=== PATIENT | male | born 1970 | race Caucasian/White ===

== ENCOUNTER 2017-09-13 07:24 | Emergency (ER) | payer MEDICAID ==
[~2017-09-13] VITALS: Ht 177.8 cm; Wt 85.0 kg
[~2017-09-13 07:24] MED LIST: BIOTCAP PO; CYAN1TAB24 PO; HUMIKIT2 SQ; MELO7.5T27 PO; NIAC500T5 PO
[2017-09-13 07:27] VITALS: BP 135/82; PULSE 87; RESP 18; TEMP 97.6; O2SAT 99
[2017-09-13] MEDS ORDERED: methylPREDNISolone SOD SUCC 125 MG/2 ML VIAL IM ONE (07:45)
[2017-09-13] MEDS ORDERED: KETOROLAC TROMETHAMINE 60 MG/2 ML (IM) VIAL IM ONE (07:45)
--- NOTE | 2017-09-13 07:51 | PD ---
HPI Chief Complaint: Pain: Acute or Chronic Time Seen by Provider: 07:35 Travel History International Travel<30 days: No Contact w/Intl Traveler<30days: No Traveled to known affect area: No History of Present Illness HPI 47-year-old male presents to the emergency department complaining of left wrist pain that started approximately noon yesterday. Patient denies trauma to the area states he has shooting pain from the radial aspect of wrist described as stabbing and moderate. He also has tenderness to palpation of the palmar aspect of radius. Patient denies numbness. 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 Patient has tried ice and wrapping along with aspirin without improvement of pain. 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 Patient denies recent travel, surgeries, medical issues, blood disorders. He does not take any medication. [facility] Social History Alcohol Use: No Tobacco Use: No Substance Use: No Allergies-Medications (Allergen,Severity, Reaction): Coded Allergies: No Known Allergies (Unverified Adverse Reaction, Unknown, 09/13/17) Reported Meds & Prescriptions Reported Meds & Active Scripts Active Medrol Dosepak (Methylprednisolone) 4 Mg Dspk 4 Mg PO DIRECTED Per Pharmacist direction Meloxicam 7.5 Mg Tab 7.5 Mg PO DAILY Reported Niacin 500 Mg Tab 500 Mg PO DAILY B12 (Cyanocobalamin) 1,000 Mcg Tab 1,000 Mcg PO DAILY Biotin 5 Mg Cap 5 Mg PO Humira Pen Psoriasis 4-Pack Inj (Adalimumab Pen Psoriasis 4-Pack Inj) 40 Mg/0.8 Ml Pen 40 Mg SQ DIRECTED 80 mg on day 1 then 40 mg every other week beginning on day 8. Review of Systems Except as stated in HPI: all other systems reviewed are Neg Physical Exam Narrative GENERAL: Well-nourished, well-developed patient. SKIN: Focused skin assessment warm/dry. HEAD: Normocephalic. EYES: No scleral icterus. No injection or drainage. NECK: Supple, trachea midline. No JVD or lymphadenopathy. CARDIOVASCULAR: Regular rate and rhythm without murmurs, gallops, or rubs. RESPIRATORY: Breath sounds equal bilaterally. No accessory muscle use. GASTROINTESTINAL: Abdomen soft, non-tender, nondistended. MUSCULOSKELETAL: No cyanosis, or edema. left wrist -positive Ana's, TTP over radial aspect- extensor ollicis brevis and bursa. Negative Tinel's and unable to perform Phalen secondary to pain. BACK: Nontender without obvious deformity. No CVA tenderness. Data Data Last Documented VS Vital Signs Date Time Temp Pulse Resp B/P (MAP) Pulse Ox O2 Delivery O2 Flow Rate FiO2 09/13/17 08:10 09/13/17 07:27 97.6 87 18 99 Room Air Orders Orders Methylprednisolone So Succ Inj (Solumedr (09/13/17 07:45) Ketorolac Inj (Toradol Inj) (09/13/17 07:45) Ed Discharge Order (09/13/17 08:01) Splint Or Brace Apply/Monitor (09/13/17 08:03) Cockup Hand Splint (09/13/17 ) MDM Medical Decision Making Medical Screen Exam Complete: Yes Emergency Medical Condition: Yes Differential Diagnosis Left wrist De Quervain's tendinopathy versus ganglionic cyst versus bursitis versus fracture Narrative Course 47-year-old male presents to the emergency department complaining of left wrist pain that started approximately noon yesterday. Patient denies trauma to the area states he has shooting pain from the radial aspect of wrist described as stabbing and moderate. He also has tenderness to palpation of the palmar aspect of radius. Patient denies numbness. 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 Patient has tried ice and wrapping along with aspirin without improvement of pain. 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 Patient denies recent travel, surgeries, medical issues, blood disorders. He does not take any medication. Vital signs stable Physical exam- left wrist -positive Ana's, TTP over radial aspect- extensor ollicis brevis and bursa. Negative Tinel's and unable to perform Phalen secondary to pain. Neurovascularly intact. Patient reassured. Advised that he should see his primary care physician regarding this issue. Medrol Dosepak for outpatient. Solu-Medrol And Toradol administered in the ED. Wrist brace or wrapping for symptomatic relief Diagnosis Primary Impression: Tendinitis Referrals: Hand Surgeon Additional Instructions: Take medication as prescribed. Continue meloxicam however, wait until the evening to take her next dose of meloxicam. Follow-up with a hand surgeon and/or your primary care physician within 2-3 days. If your symptoms persist or worsen return to the emergency department Scripts Methylprednisolone Dosepak (Medrol Dosepak) 4 Mg Dspk 4 MG PO DIRECTED, #1 DSPK 0 Refills Per Pharmacist direction Prov: Dori Hernandez MD 09/13/17 Disposition: 01 DISCHARGE HOME Condition: Stable Radha [place] Sep 13, 2017 07:51
[2017-09-13] MEDS ORDERED: MEDR4PAK PO (07:56)
== END 2017-09-13 08:15 | disposition home or self-care (01) ==
LOC: NEPD 07:24
DX: M77.9 Enthesopathy, unspecified (principal); Z79.899 Other long term (current) drug therapy
CPT/HCPCS: 96372; 99283; J1885; J2930; L3908